=== PATIENT | male | born 1955 | race Hispanic/Latino ===

== ENCOUNTER 2017-02-15 17:09 | Emergency (ER) | payer OTHER ==
--- NOTE | 2017-02-15 18:49 | Emergency Department Report ---
Chief Complaint: Syncope Stated Complaint: DIZZINESS Time Seen by Provider: 02/15/17 18:43 - HPI History of Present Illness: PT c/o dizziness. Pt states he is fatigued and waking up dizzy. PT states he threw up the other day - ROS Review of Systems: - abd pain + dizziness + vomiting x 1 - this am - Exam Vital Signs: Vital Signs 02/15/17 17:26 Temperature 97.9 F Pulse Rate 66 Respiratory 20 Rate Blood Pressure 146/83 O2 Sat by Pulse 97 Oximetry Physical Exam: L ear canal with cerumen impaction no focal weakness noted steady gait MSE screening note: Focused history and physical exam performed. Due to findings the following was ordered: labs, ekg, ct ED Disposition for MSE Condition: Stable Referrals: PRIMARY CARE, [Primary Care Provider] - 3-5 Days
--- NOTE | 2017-02-15 19:23 | Cat Scan Report ---
FINAL REPORT EXAM: CT HEAD/BRAIN WO CON HISTORY: Syncope TECHNIQUE: Standard unenhanced CT of the head at 5.0 millimeter axial increments PRIORS: None. FINDINGS: The ventricular system is normal in size and configuration. There is no evidence for parenchymal volume loss. There is no evidence for mass lesion, mass effect, midline shift, acute intracranial hemorrhage, or acute ischemia/ infarction. Visualized paranasal sinuses are clear. There is minimal opacification of several bilateral mastoid air cells. There are remote traumatic changes involving the right mandibular ramus and right zygomatic arch. IMPRESSION: Negative CT of the head. No acute intracranial process noted. Mild bilateral mastoiditis.
[2017-02-15 19:28] LABS: Eosinophils % (Auto) 7.9 % (0.0-4.3); Hematocrit 41.5 % (35.5-45.6); Hemoglobin 14.4 gm/dl (11.8-15.2); Mean Corpuscular HGB Conc 35 % (32-34); Mean Corpuscular Hemoglobin 31 pg (28-32); Mean Corpuscular Volume 89 fl (84-94); Platelet Count 205 K/mm3 (140-440); Red Blood Count 4.66 M/mm3 (3.65-5.03); Red Cell Distribution Width 12.9 % (13.2-15.2); White Blood Count 6.9 K/mm3 (4.5-11.0)
[2017-02-15 19:39] LABS: INR 1.16 (0.87-1.13)
[2017-02-15 19:40] LABS: Partial Thromboplastin Time 32.8 Sec. (24.2-36.6)
[2017-02-15 19:48] LABS: Alanine Aminotransferase 23 units/L (7-56); Albumin 4.5 g/dL (3.9-5); Albumin/Globulin Ratio 1.5 %; Alkaline Phosphatase 93 units/L (35-129); Anion Gap 18 mmol/L; BUN/Creatinine Ratio 22.72; Blood Urea Nitrogen 25 mg/dL (9-20); Calcium 9.4 mg/dL (8.4-10.2); Carbon Dioxide 28 mmol/L (22-30); Chloride 97.1 mmol/L (98-107); Glucose 159 mg/dL (75-100); Potassium 4.1 mmol/L (3.6-5.0); Sodium 139 mmol/L (137-145); Total Protein 7.6 g/dL (6.3-8.2)
[2017-02-15] MEDS ORDERED: NACL 0.9% 1000 ML 1,000 ML IV ONE (23:57)
[2017-02-16] MEDS ORDERED: NACL ONE (00:41)
--- NOTE | 2017-02-16 01:15 | Emergency Department Report ---
ED Dizziness HPI - General Chief Complaint: Syncope Stated Complaint: DIZZINESS Time Seen by Provider: 02/15/17 18:43 Source: patient Mode of arrival: Ambulatory Limitations: No Limitations - History of Present Illness Initial Comments: 61-year-old male with a past medical history diabetes, high cholesterol, and gout presents to the hospital complains of dizziness. Patient woke up this morning and felt lightheaded. Patient also states when he works and looks upward he also feels lightheaded at times. Similar episode last month that also resolved. Patient has intermittent left hand tingling for the last 2 months. No reports of headache, trauma, focal weakness, chest pain, or shortness of breath. Patient denies room spinning sensation. Patient did have some mild nausea and one episode of vomiting this a.m. Patient has a history of hypertension the past. Medications were discontinued over 1 year ago due to improvement in blood pressure. - Related Data Home Medications Medication Instructions Recorded Confirmed Last Taken Invokana 300 mg PO DAILY 04/30/15 04/30/15 Unknown Lovastatin 20 mg PO DAILY 04/30/15 04/30/15 Unknown Tramadol HCl/Acetaminophen 1 tab PO Q6H PRN 04/30/15 04/30/15 Unknown glipiZIDE 10 mg PO BID 04/30/15 04/30/15 Unknown Previous Rx's Medication Instructions Recorded Last Taken Type Acetaminophen with Codeine 1 tab PO Q6HR #20 tab 05/01/15 Unknown Rx [Acetaminophen-Codeine #4 TAB] Indomethacin 50 mg PO Q8H #30 capsule 05/01/15 Unknown Rx Amoxicillin/K Clav Tab [Augmentin 1 tab PO Q12HR #20 tab 02/16/17 Unknown Rx 875 mg] Allergies Allergy/AdvReac Type Severity Reaction Status Date / Time iodine Allergy Shortness Verified 04/30/15 19:57 of Breath shellfish derived Allergy Shortness Verified 04/30/15 19:57 of Breath ED Review of Systems ROS: Stated complaint: DIZZINESS Other details as noted in HPI Comment: All other systems reviewed and negative Other: Constitutional: No fevers chills Eyes: No eye pain visual changes ENT: No ear pain or throat pain Neck: Denies pain Respiratory: Denies cough wheezing shortness of breath Cardiovascular: Denies chest pain, palpitations GI: Denies abdominal pain, nausea, vomiting, diarrhea : Denies dysuria Musculoskeletal: Denies back pain, Skin: Denies rash, lesions, erythema Neurologic: Denies headache Psychiatric: Denies suicidal ideation, hallucinations ED Past Medical Hx - Past Medical History Hx Diabetes: Yes Additional medical history: High Cholesterol, GOUT - Social History Smoking Status: Never Smoker Substance Use Type: None - Medications Home Medications: Home Medications Medication Instructions Recorded Confirmed Last Taken Type Invokana 300 mg PO DAILY 04/30/15 04/30/15 Unknown History Lovastatin 20 mg PO DAILY 04/30/15 04/30/15 Unknown History Tramadol HCl/Acetaminophen 1 tab PO Q6H PRN 04/30/15 04/30/15 Unknown History glipiZIDE 10 mg PO BID 04/30/15 04/30/15 Unknown History Acetaminophen with Codeine 1 tab PO Q6HR #20 tab 05/01/15 Unknown Rx [Acetaminophen-Codeine #4 TAB] Indomethacin 50 mg PO Q8H #30 capsule 05/01/15 Unknown Rx Amoxicillin/K Clav Tab [Augmentin 1 tab PO Q12HR #20 tab 02/16/17 Unknown Rx 875 mg] ED Physical Exam - General Limitations: No Limitations - Other Other exam information: General: No limitations, patient is alert in no acute distress Head exam: Atraumatic, normocephalic Eyes exam: Normal appearance, pupils equal reactive to light, extraocular movements intact, no nystagmus ENT: Moist mucous membrane, normal oropharynx. Possible right tm perforation anteriorly, no TM erythemia, left ear + cerumen impaction. Neck exam: Normal inspection, full range of motion, no meningismus nontender Respiratory exam: Clear to auscultation bilateral, no wheezes, rales, crackles Cardiovascular: Normal rate and rhythm, normal heart sounds Abdomen: Soft, nondistended, and nontender, with normal bowel sounds, no rebound, or guarding Extremity: Full range of motion normal inspection no deformity Back: Normal Inspection, full range of motion, no tenderness Neurologic: Alert, oriented x3, cranial nerves intact, no motor or sensory deficit, [id number]-[id number] function intact Psychiatric: normal affect, normal mood Skin: Warm, dry, intact ED Course Vital Signs 02/15/17 02/15/17 02/15/17 17:26 23:08 23:48 Temperature 97.9 F Pulse Rate 66 61 Pulse Rate [ 60 Lying] Pulse Rate [ 64 Sitting] Pulse Rate [ 65 Standing] Respiratory 20 16 Rate Blood Pressure 146/83 Blood Pressure 159/76 [Left] Blood Pressure 152/68 [Lying] Blood Pressure 156/84 [Sitting] Blood Pressure 133/85 [Standing] O2 Sat by Pulse 97 98 Oximetry 02/16/17 02:37 Temperature Pulse Rate 57 L Pulse Rate [ Lying] Pulse Rate [ Sitting] Pulse Rate [ Standing] Respiratory 20 Rate Blood Pressure Blood Pressure 148/78 [Left] Blood Pressure [Lying] Blood Pressure [Sitting] Blood Pressure [Standing] O2 Sat by Pulse 98 Oximetry - Reevaluation(s) Reevaluation #1: 02/16/17 01:14 Orthostatics were unremarkable ED Medical Decision Making - Lab Data Result diagrams: 02/15/17 19:14 02/15/17 19:14 Lab Results 02/15/17 02/15/17 02/15/17 Range/Units 17:21 19:14 19:14 WBC 6.9 (4.5-11.0) K/mm3 RBC 4.66 (3.65-5.03) M/mm3 Hgb 14.4 (11.8-15.2) gm/dl Hct 41.5 (35.5-45.6) % MCV 89 (84-94) fl MCH 31 (28-32) pg MCHC 35 H (32-34) % RDW 12.9 L (13.2-15.2) % Plt Count 205 (140-440) K/mm3 Lymph % (Auto) 33.3 (13.4-35.0) % [place] % (Auto) 8.2 H (0.0-7.3) % Eos % (Auto) 7.9 H (0.0-4.3) % Baso % (Auto) 1.0 (0.0-1.8) % Lymph # 2.3 (1.2-5.4) K/mm3 [place] # 0.6 (0.0-0.8) K/mm3 Eos # 0.5 H (0.0-0.4) K/mm3 Baso # 0.1 (0.0-0.1) K/mm3 Seg Neutrophils % 49.6 (40.0-70.0) % Seg Neutrophils # 3.4 (1.8-7.7) K/mm3 PT (12.2-14.9) Sec. INR (0.87-1.13) APTT (24.2-36.6) Sec. Sodium 139 (137-145) mmol/L Potassium 4.1 (3.6-5.0) mmol/L Chloride 97.1 L (98-107) mmol/L Carbon Dioxide 28 (22-30) mmol/L Anion Gap 18 mmol/L BUN 25 H (9-20) mg/dL Creatinine 1.1 (0.8-1.5) mg/dL Estimated GFR > 60 ml/min BUN/Creatinine Ratio 22.72 % Glucose 159 H (75-100) mg/dL POC Glucose 183 H (70-105) Calcium 9.4 (8.4-10.2) mg/dL Total Bilirubin 0.60 (0.1-1.2) mg/dL AST 26 (5-40) units/L ALT 23 (7-56) units/L Alkaline Phosphatase 93 (35-129) units/L Total Protein 7.6 (6.3-8.2) g/dL Albumin 4.5 (3.9-5) g/dL Albumin/Globulin Ratio 1.5 % TSH (0.270-4.200) mlU/mL Free T4 (0.76-1.46) ng/dL 02/15/17 02/15/17 02/15/17 Range/Units 19:14 19:14 19:14 WBC (4.5-11.0) K/mm3 RBC (3.65-5.03) M/mm3 Hgb (11.8-15.2) gm/dl Hct (35.5-45.6) % MCV (84-94) fl MCH (28-32) pg MCHC (32-34) % RDW (13.2-15.2) % Plt Count (140-440) K/mm3 Lymph % (Auto) (13.4-35.0) % [place] % (Auto) (0.0-7.3) % Eos % (Auto) (0.0-4.3) % Baso % (Auto) (0.0-1.8) % Lymph # (1.2-5.4) K/mm3 [place] # (0.0-0.8) K/mm3 Eos # (0.0-0.4) K/mm3 Baso # (0.0-0.1) K/mm3 Seg Neutrophils % (40.0-70.0) % Seg Neutrophils # (1.8-7.7) K/mm3 PT 14.7 (12.2-14.9) Sec. INR 1.16 H (0.87-1.13) APTT 32.8 (24.2-36.6) Sec. Sodium (137-145) mmol/L Potassium (3.6-5.0) mmol/L Chloride (98-107) mmol/L Carbon Dioxide (22-30) mmol/L Anion Gap mmol/L BUN (9-20) mg/dL Creatinine (0.8-1.5) mg/dL Estimated GFR ml/min BUN/Creatinine Ratio % Glucose (75-100) mg/dL POC Glucose (70-105) Calcium (8.4-10.2) mg/dL Total Bilirubin (0.1-1.2) mg/dL AST (5-40) units/L ALT (7-56) units/L Alkaline Phosphatase (35-129) units/L Total Protein (6.3-8.2) g/dL Albumin (3.9-5) g/dL Albumin/Globulin Ratio % TSH 2.840 (0.270-4.200) mlU/mL Free T4 0.99 (0.76-1.46) ng/dL - EKG Data -: EKG Interpreted by Me (sinus rhythm first degree AV block right bundle- branch block rate 67) - EKG Data When compared to previous EKG there are: previous EKG unavailable - Radiology Data Radiology results: report reviewed CT head: Mild bilateral mastoiditis CT angiogram head: Mild calcified plaque along the carotid siphon's. No significant stenosis. CT angiogram neck: Mild calcified plaque at the right carotid bifurcation and mild Plaque within the Proximal Left External Carotid Artery. No Significant Stenosis. - Medical Decision Making No signs of acute stroke or stenosis in the posterior circulation. Patient has significant TM findings with associated mild bilateral mastoiditis. Patient was treated with antibiotics and encouraged to follow with ENT and a primary care doctor. Blood pressure is slightly elevated. We will recommend outpatient follow-up and reevaluation to determine if blood pressure medication is required as an outpatient. patient did receive 1 L normal saline for mild dehydration - Differential Diagnosis vertigo, posterior circulation stroke, and VBI, carotid stenosis Critical Care Time: No Critical care attestation.: If time is entered above; I have spent that time in minutes in the direct care of this critically ill patient, excluding procedure time. ED Disposition Clinical Impression: Dizziness, Perforated right tympanic membrane on examination, Left ear impacted cerumen, Unspecified mastoiditis, bilateral, Elevated blood pressure reading Carotid artery plaque Qualifiers: Laterality: bilateral Qualified Code(s): I65.23 - Occlusion and stenosis of bilateral carotid arteries Disposition: TO HOME OR SELFCARE Is pt being admited?: No Does the pt Need Aspirin: No Condition: Stable Instructions: Lightheadedness (ED), Ruptured Eardrum (ED), Cerumen Impaction ( ED), Otitis Media (ED), How to Take a Blood Pressure (ED) Additional Instructions: You have been provided copies of the CAT scans to take to [facility] for follow-up. Recommend follow-up with ENT doctor regarding your CT findings of mastoiditis and abnormal right ear findings on exam there is suggestive of possible ruptured eardrum. Take the antibiotics as prescribed. Use Cerumenex ( over the counter) to dissolve the wax in the left ear only. Do not place in your right ear due to possible eardrum rupture. Follow-up with primary care doctor regarding further monitoring of your plaques identified in your carotids and for reevaluation of your blood pressure. Prescriptions: Amoxicillin/K Clav Tab [Augmentin 875 mg] 1 tab PO Q12HR #20 tab Referrals: [facility] [Provider Group] - 3-5 Days (primary care clinic) EDGARDO GUERRERO MD [Staff Physician] - 3-5 Days (Primary care doctor ) VIRAL TANNER MD [Staff Physician] - 3-5 Days (ENT (ear, nose, and throat ) doctor) Time of Disposition: 03:29
[2017-02-16 02:38] VITALS: BP 148/78
--- NOTE | 2017-02-16 03:00 | Cat Scan Report ---
FINAL REPORT EXAM: CT ANGIO HEAD HISTORY: dizziness COMPARISON: CT of the head from yesterday. TECHNIQUE: Contiguous axial images were obtained. Additional sagittal and coronal reformatted images were obtained. Max intensity projection images. 130 cc Omnipaque 350. FINDINGS: Mild calcified plaque along the carotid siphons. No associated stenosis. Petrous, cavernous, supraclinoid portions of the internal carotid arteries remain patent. A1 segments are symmetric in caliber. Gross symmetric branching opacification of the anterior, middle, posterior cerebral arteries Intracranial portions the vertebral arteries and basilar artery are widely patent. Single bilateral superior cerebellar arteries. Bilateral posterior communicating arteries are absent, anatomic variant. No early draining vein. No area of abnormal hypervascular enhancement. Gross normal opacification of the major dural venous sinuses. IMPRESSION: Mild calcified plaque along the carotid siphons. No significant associated stenosis. Otherwise, negative CTA of the head.
--- NOTE | 2017-02-16 03:15 | Cat Scan Report ---
FINAL REPORT EXAM: CT ANGIO NECK HISTORY: dizziness COMPARISON: None available. TECHNIQUE: Contiguous axial images were obtained. Additional sagittal and coronal reformatted images were obtained. Administration of IV contrast given per institution protocol. Images submitted for interpretation. Max intensity projection images. 100 cc Omnipaque 350. FINDINGS: Common origin of the innominate left common carotid arteries, bone lying configuration of the aortic arch, anatomic variant. Extracranial portions of the vertebral arteries are widely patent. Left vertebral artery is slightly dominant. Origins of the bilateral common carotid and subclavian arteries are also widely patent as well as the innominate artery. Minimal calcified plaque at the origin of the left external carotid artery. Mild calcified plaque at the right carotid bifurcation. No associated stenosis by NASCET criteria. Otherwise, extracranial portions of the common carotid internal carotid arteries are widely patent. Spaces of the neck are preserved. Airway is patent. True vocal cords are symmetric. Thyroid gland and salivary glands are grossly unremarkable. No pathologically enlarged cervical lymph nodes. Lung apices are clear. Moderate degenerative changes of the cervical spine. IMPRESSION: Mild calcified plaque at the right carotid bifurcation and mild calcified plaque within the proximal left external carotid artery. No significant associated stenosis by NASCET criteria. Otherwise, extracranial portions of the common carotid, internal carotid, vertebral arteries are grossly patent.
== END 2017-02-16 03:57 | disposition home or self-care (01) ==
LOC: ED 17:09
DX: I65.23 Occlusion and stenosis of bilateral carotid arteries (principal); R42 Dizziness and giddiness; H61.22 Impacted cerumen, left ear; H72.91 Unspecified perforation of tympanic membrane, right ear; E11.9 Type 2 diabetes mellitus without complications; E78.00 Pure hypercholesterolemia, unspecified; M10.9 Gout, unspecified; Z91.013 Allergy to seafood; Z88.8 Allergy status to other drugs, medicaments and biological substances
CPT/HCPCS: 36415; 70450; 70496; 70498; 80053; 82962; 84439; 84443; 85025; 85610; 85730; 93005; 93010; 96360; 99284; J7030; Q9967

== ENCOUNTER 2017-12-08 13:49 | Emergency (ER) | payer OTHER ==
[2017-12-08] MEDS ORDERED: ASPIRIN PO ONE (14:23)
[2017-12-08 14:55] LABS: Basophils % (Auto) 0.6 % (0.0-1.8); Eosinophils # (Auto) 0.1 K/mm3 (0.0-0.4); Eosinophils % (Auto) 1.8 % (0.0-4.3); Hematocrit 45.2 % (35.5-45.6); Hemoglobin 15.7 gm/dl (11.8-15.2); Lymphocytes # (Auto) 2.6 K/mm3 (1.2-5.4); Mean Corpuscular HGB Conc 35 % (32-34); Mean Corpuscular Hemoglobin 31 pg (28-32); Mean Corpuscular Volume 89 fl (84-94); Monocytes # (Auto) 0.5 K/mm3 (0.0-0.8); Platelet Count 199 K/mm3 (140-440); Red Cell Distribution Width 13.5 % (13.2-15.2)
[2017-12-08 15:05] LABS: BUN/Creatinine Ratio 19; Blood Urea Nitrogen 21 mg/dL (9-20); Calcium 9.2 mg/dL (8.4-10.2); Hemolysis Index 51
--- NOTE | 2017-12-08 23:53 | Emergency Department Report ---
ED General Adult HPI - General Chief complaint: Dizziness Stated complaint: WEAK/DIZZY/SOB Time Seen by Provider: 12/08/17 21:26 Source: patient Mode of arrival: Ambulatory Limitations: No Limitations - History of Present Illness Initial comments: Patient is 62 years old male with history of hypertension and diabetes and arthritis. Patient presented to the ER complaining off generalized weakness, dizziness and shortness of breath for the last 2-3 days. Patient stated that it 's difficult for him to walk without getting shortness of breath. Patient denied any chest pain or cough. No fever no nausea no vomiting. Patient denied any focal weakness, numbness or tingling sensation. No bowel or bladder incontinence. - Related Data Home Medications Medication Instructions Recorded Confirmed Last Taken Invokana 300 mg PO DAILY 04/30/15 04/30/15 Unknown Lovastatin 20 mg PO DAILY 04/30/15 04/30/15 Unknown Tramadol HCl/Acetaminophen 1 tab PO Q6H PRN 04/30/15 04/30/15 Unknown glipiZIDE 10 mg PO BID 04/30/15 04/30/15 Unknown Previous Rx's Medication Instructions Recorded Last Taken Type Acetaminophen with Codeine 1 tab PO Q6HR #20 tab 05/01/15 Unknown Rx [Acetaminophen-Codeine #4 TAB] Indomethacin 50 mg PO Q8H #30 capsule 05/01/15 Unknown Rx Amoxicillin/K Clav Tab [Augmentin 1 tab PO Q12HR #20 tab 02/16/17 Unknown Rx 875 mg] Allergies Allergy/AdvReac Type Severity Reaction Status Date / Time iodine Allergy Shortness Verified 04/30/15 19:57 of Breath shellfish derived Allergy Shortness Verified 04/30/15 19:57 of Breath ED Review of Systems ROS: Stated complaint: WEAK/DIZZY/SOB Other details as noted in HPI Comment: All other systems reviewed and negative Constitutional: denies: chills, fever Respiratory: denies: cough, orthopnea, shortness of breath, SOB with exertion, SOB at rest, wheezing Cardiovascular: dyspnea on exertion, orthopnea, paroxysmal nocturnal dyspnea. denies: chest pain, palpitations Gastrointestinal: denies: abdominal pain, nausea, vomiting, diarrhea, constipation, hematemesis, melena, hematochezia Genitourinary: denies: urgency, dysuria, frequency, hematuria, discharge, testicular pain, testicular mass Neurological: weakness. denies: headache (generalized), numbness, paresthesias , confusion, abnormal gait, vertigo ED Past Medical Hx - Past Medical History Hx Diabetes: Yes Additional medical history: High Cholesterol, GOUT - Social History Smoking Status: Never Smoker Substance Use Type: None - Medications Home Medications: Home Medications Medication Instructions Recorded Confirmed Last Taken Type Invokana 300 mg PO DAILY 04/30/15 04/30/15 Unknown History Lovastatin 20 mg PO DAILY 04/30/15 04/30/15 Unknown History Tramadol HCl/Acetaminophen 1 tab PO Q6H PRN 04/30/15 04/30/15 Unknown History glipiZIDE 10 mg PO BID 04/30/15 04/30/15 Unknown History Acetaminophen with Codeine 1 tab PO Q6HR #20 tab 05/01/15 Unknown Rx [Acetaminophen-Codeine #4 TAB] Indomethacin 50 mg PO Q8H #30 capsule 05/01/15 Unknown Rx Amoxicillin/K Clav Tab [Augmentin 1 tab PO Q12HR #20 tab 02/16/17 Unknown Rx 875 mg] ED Physical Exam - General Limitations: No Limitations General appearance: alert, in no apparent distress - Head Head exam: Present: atraumatic, normocephalic, normal inspection - Eye Eye exam: Present: normal appearance, PERRL - ENT ENT exam: Present: normal exam, normal orophraynx, mucous membranes moist, TM's normal bilaterally, normal external ear exam - Neck Neck exam: Present: normal inspection, full ROM. Absent: tenderness, meningismus, lymphadenopathy, thyromegaly - Respiratory Respiratory exam: Present: normal lung sounds bilaterally. Absent: respiratory distress, wheezes, rales, rhonchi, stridor, accessory muscle use, decreased breath sounds, prolonged expiratory - Cardiovascular Cardiovascular Exam: Present: regular rate, normal rhythm, normal heart sounds - GI/Abdominal GI/Abdominal exam: Present: soft, normal bowel sounds. Absent: distended, tenderness, guarding, rebound, rigid, diminished bowel sounds, organomegaly, mass, bruit, pulsatile mass, hernia - Extremities Exam Extremities exam: Present: normal inspection, full ROM, normal capillary refill - Back Exam Back exam: Present: normal inspection, full ROM. Absent: tenderness, CVA tenderness (R), CVA tenderness (L), muscle spasm, paraspinal tenderness, vertebral tenderness, rash noted - Neurological Exam Neurological exam: Present: alert, oriented X3, CN II-XII intact, normal gait, reflexes normal - Skin Skin exam: Present: warm, intact, normal color. Absent: cyanosis ED Course Vital Signs 12/08/17 14:21 Pulse Rate 52 L Respiratory 20 Rate Blood Pressure 148/73 O2 Sat by Pulse 98 Oximetry - Reevaluation(s) Reevaluation #1: 12/09/17 01:33 Patient stated that he is feeling better. I informed him about his CAT scan results and his blood work results. I advised patient to start the blood pressure medication and follow-up with his primary care physician in the next 2- 3 days. I also informed him to return to the ER if his symptoms are not improving. ED Medical Decision Making - Lab Data Result diagrams: 12/08/17 14:35 12/08/17 14:35 - EKG Data -: EKG Interpreted by Me EKG shows normal: sinus rhythm Rate: bradycardia - EKG Data Interpretation: no acute changes - Radiology Data Radiology results: report reviewed Referring Physician: FRIEDA CHAIDEZ Patient Name: MARLENE PAIZ Date of : 1955 Sex: Male Report Date: 2017-12-09 Report Status: [place] [address] Cat Scan Report Signed Patient: MARLENE PAIZ MR#: [id number] : 1955 Acct:[id number] Age/Sex: 62 / M ADM Date: 12/08/17 Loc: ED Attending Dr: Ordering Physician: FRIEDA CHAIDEZ Date of Service: 12/09/17 Procedure(s): CT head/brain wo con Accession Number(s): [id number] cc: FRIEDA CHAIDEZ FINAL REPORT PROCEDURE: CT HEAD/BRAIN WO CON TECHNIQUE: Computerized tomography of the head was performed without contrast material. HISTORY: dizziness COMPARISON: 02/15/2017 FINDINGS: Skull and scalp: Normal. Paranasal sinuses: Normal. Ventricles and subarachnoid spaces: Normal. Cerebrum: No evidence of hemorrhage, acute infarction or mass . Cerebellum and brainstem: No evidence of hemorrhage, acute infarction or mass. Vasculature: Normal. Comments: None. IMPRESSION: Normal Examination Transcribed By: CO Dictated By: MILDRED BOYCE MD Electronically Authenticated By: MILDRED BOYCE MD Signed Date/Time: 12/09/1720 DD/ TD/TT: 12/09/1720 - Medical Decision Making Referring Physician: FRIEDA CHAIDEZ Patient Name: MARLENE PAIZ Date of : 1955 Sex: Male Report Date: 2017-12-09 Report Status: Finalized Findings [facility] [address] [place] [address] XRay Report Signed Patient: MARLENE PAIZ MR#: [id number] : 1955 Acct:[id number] Age/Sex: 62 / M ADM Date: 12/08/17 Loc: ED Attending Dr: Ordering Physician: FRIEDA CHAIDEZ Date of Service: 12/08/17 Procedure(s): XR chest 1V ap Accession Number(s): [id number] cc: FRIEDA CHAIDEZ Fluoro Time In Minutes: FINAL REPORT PROCEDURE: XR CHEST 1V AP TECHNIQUE: Chest radiograph anteroposterior view. CPT 39611 HISTORY: shortness of breath COMPARISON: No prior studies are available for comparison. FINDINGS: Heart: Normal. Mediastinum/Vessels: Normal. Lungs/Pleural space: Normal. Bony thorax: No acute osseous abnormality. Life support devices: None. IMPRESSION: No acute cardiopulmonary abnormality. Transcribed By: CO Dictated By: MILDRED BOYCE MD Electronically Authenticated By: MILDRED BOYCE MD Signed Date/Time: 12/09/1714 DD/ TD/TT: 12/09/1714 Critical care attestation.: If time is entered above; I have spent that time in minutes in the direct care of this critically ill patient, excluding procedure time. ED Disposition Clinical Impression: Shortness of breath, Dizziness, Malignant hypertension Disposition: -01 TO HOME OR SELFCARE Is pt being admited?: No Condition: Stable Instructions: Hypertension (ED), Dizziness (ED) Referrals: TORRES GERARD MD [Primary Care Provider] - 3-5 Days
--- NOTE | 2017-12-09 00:20 | XRay Report ---
FINAL REPORT PROCEDURE: XR CHEST 1V AP TECHNIQUE: Chest radiograph anteroposterior view. CPT 92069 HISTORY: shortness of breath COMPARISON: No prior studies are available for comparison. FINDINGS: Heart: Normal. Mediastinum/Vessels: Normal. Lungs/Pleural space: Normal. Bony thorax: No acute osseous abnormality. Life support devices: None. IMPRESSION: No acute cardiopulmonary abnormality.
--- NOTE | 2017-12-09 00:27 | Cat Scan Report ---
FINAL REPORT PROCEDURE: CT HEAD/BRAIN WO CON TECHNIQUE: Computerized tomography of the head was performed without contrast material. HISTORY: dizziness COMPARISON: 02/15/2017 FINDINGS: Skull and scalp: Normal. Paranasal sinuses: Normal. Ventricles and subarachnoid spaces: Normal. Cerebrum: No evidence of hemorrhage, acute infarction or mass . Cerebellum and brainstem: No evidence of hemorrhage, acute infarction or mass. Vasculature: Normal. Comments: None. IMPRESSION: Normal Examination
[2017-12-09 01:54] VITALS: BP 147/77
== END 2017-12-09 01:54 | disposition home or self-care (01) ==
LOC: ED 13:49
DX: I10 Essential (primary) hypertension (principal); R42 Dizziness and giddiness; R06.02 Shortness of breath; E11.9 Type 2 diabetes mellitus without complications
CPT/HCPCS: 36415; 70450; 71045; 80048; 83880; 84484; 85025; 85379; 93005; 93010

== ENCOUNTER 2019-03-07 09:54 | Outpatient (CLI) | payer OTHER | END 2019-03-07 09:55 | disposition home or self-care (01) | LOC: LAB 09:54 | PROVIDERS: ATTEND Internal Medicine | DX: E11.22 Type 2 diabetes mellitus with diabetic chronic kidney disease (principal); I12.9 Hypertensive chronic kidney disease with stage 1 through stage 4 chronic kidney disease, or unspecified chronic kidney disease; N18.9 Chronic kidney disease, unspecified | CPT/HCPCS: 36415; 83036 ==

== ENCOUNTER 2019-06-19 08:17 | Outpatient (CLI) | payer OTHER ==
[2019-06-19 11:32] LABS: Chol/HDL Ratio 2.36 %
== END 2019-06-19 08:18 | disposition home or self-care (01) ==
LOC: LAB 08:17
PROVIDERS: ATTEND Internal Medicine
DX: E78.2 Mixed hyperlipidemia (principal); E11.40 Type 2 diabetes mellitus with diabetic neuropathy, unspecified
CPT/HCPCS: 36415; 80061; 83036

== ENCOUNTER 2020-12-29 09:35 | Outpatient (CLI) | payer MEDICARE, OTHER ==
--- NOTE | 2020-12-29 11:00 | XRay Report ---
Right hip radiograph, 3 views. HISTORY: Pain COMPARISON: None FINDINGS: There is moderate right hip osteoarthritis. Mild left hip osteoarthritis. No acute fracture or dislocation. SI joints and pubic symphysis are intact. No focal soft tissue abnormality. IMPRESSION: Moderate right hip osteoarthritis. Signer Name: Vinay Meza MD Signed: 12/29/2020 10:56 AM Workstation Name: [id number]
--- NOTE | 2020-12-29 11:02 | XRay Report ---
Lumbar spine radiograph, 3 views. HISTORY: Pain COMPARISON: None FINDINGS: Mild left convex curvature of the lumbar spine. Lumbar spinal alignment is preserved. There is up to moderate multilevel degenerative disc disease, greatest at L2-L3, L3-L4, and L5-S1. At leas t moderate degenerative disc disease of the lower thoracic spine also noted. Mild lower lumbar facet arthropathy. Vertebral body heights are intact. There is no evidence of fracture. SI joints are intac t. IMPRESSION: Multilevel lumbar spondylosis, as above. No acute process identified. Signer Name: Vinay Meza MD Signed: 12/29/2020 10:57 AM Workstation Name: [id number]
== END 2020-12-29 09:36 | disposition home or self-care (01) ==
LOC: XRAY 09:35
PROVIDERS: ATTEND Internal Medicine
DX: M47.816 Spondylosis without myelopathy or radiculopathy, lumbar region (principal); M51.37 Other intervertebral disc degeneration, lumbosacral region; M51.34 Other intervertebral disc degeneration, thoracic region; M16.11 Unilateral primary osteoarthritis, right hip; M16.10 Unilateral primary osteoarthritis, unspecified hip
CPT/HCPCS: 72100

== ENCOUNTER 2021-04-20 11:36 | Outpatient (CLI) | payer MEDICARE, OTHER ==
--- NOTE | 2021-04-20 14:29 | Cat Scan Report ---
CT LUMBAR SPINE: 04/20/2021 INDICATION / CLINICAL INFORMATION: LOW BACK PAIN,PAIN IN RIGHT LEG. COMPARISON: None available. FINDINGS: CT images of the lumbar spine were obtained. Images are evaluated in the axial, coronal, and sagittal planes. There is no evidence of acute abnormality. Mild left convex scoliosis is centered at the L2-3 level. LEVEL BY LEVEL ANALYSIS: L5-S1: Unremarkable. L4-5: Mild diffuse disc bulging, slightly more pronounced on the left. Moderate left-sided foraminal narrowing. L3-4: Broad-based right lateral disc protrusion, with narrowing of the right neural foramen and impin gement upon the exiting right L3 nerve root. L2-3: Mild symmetric diffuse disc bulging. L1-2: Unremarkable. PARASPINAL STRUCTURES: Unremarkable. IMPRESSION: Right lateral disc herniation/protrusion at L3-4. All CT scans at this location are performed using dose reduction to ALARA by means of automated expos ure control. Signer Name: Landon Campa MD Signed: 04/20/2021 2:25 PM Workstation Name: [id number]
== END 2021-04-20 11:37 | disposition home or self-care (01) ==
LOC: CT 11:36
PROVIDERS: ATTEND Orthopaedic Surgery
DX: M51.36 Other intervertebral disc degeneration, lumbar region (principal)
CPT/HCPCS: 72131